=== PATIENT | male | born 1955 | race Two or more races ===

== ENCOUNTER 2022-07-25 09:38 | Emergency (ER) | payer OTHER ==
[~2022-07-25] VITALS: Ht 177.8 cm; Wt 71.7 kg
[2022-07-25] MEDS ORDERED: XIGDUO XR 5 MG1 EAC1 PO (10:05)
[2022-07-25] MEDS ORDERED: CANDESARTAN CIL32 MG PO (10:05)
[2022-07-25] MEDS ORDERED: SYNTHROID150 MCG PO (10:05)
[2022-07-25] MEDS ORDERED: SYNTHROID175 MCG PO (10:06)
[2022-07-25] MEDS ORDERED: TAMS0.4C PO (15:26)
[2022-07-25] MEDS ORDERED: KETO10TA2 PO (15:26)
== END 2022-07-25 15:32 ==
LOC: ER 09:38
DX: R10.9 Unspecified abdominal pain (principal); M54.9 Dorsalgia, unspecified; Z91.013 Allergy to seafood; E03.9 Hypothyroidism, unspecified; E11.9 Type 2 diabetes mellitus without complications; I10 Essential (primary) hypertension